=== PATIENT | female | born 1985 | race Caucasian/White ===

== ENCOUNTER 2023-07-12 01:02 | Day surgery (SDC) | payer BC, SELFPAY ==
[2023-07-11 19:43] VITALS: BP 146/95; BMI 40.4
[2023-07-11 19:59] LABS: % Basophils 0.6 % (0-2); % Eosinophils 3.1 % (0-6); % Immature Granulocytes 0.4 % (0-0.5); % Lymphocytes 12.8 % (20.5-51.1); % Monocytes 8.7 % (1.7-9.3); % Neutrophils 74.4 % (42.2-75.2); Absolute Basophils 0.1 10^3/uL (0-0.2); Absolute Eosinophils 0.4 10^3/uL (0-0.7); Absolute Immature Granulocytes 0.1 10^3/uL (0-0.05); Absolute Lymphocytes 1.6 10^3/uL (1.2-3.4); Absolute Monocytes 1.1 10^3/uL (0.1-0.6); Absolute Neutrophils 9.5 10^3/uL (1.4-6.5); Hematocrit 40.7 % (37.0-47.0); Hemoglobin 13.6 g/dL (12.0-16.0); Mean Corp Hgb Conc. 33.4 g/dL (33.0-37.0); Mean Corpuscular Hgb 26.2 pg (27.0-31.0); Mean Corpuscular Volume 78.3 fL (81.0-99.0); Mean Platelet Volume 9.5 fL (7.4-10.4); Nucleated Red Blood Cells % 0 %; Platelet Count 274 10^3/uL (130-400); Red Cell Dist. Width 14.6 % (11.5-14.5); White Blood Cell Count 12.7 10^3/uL (4.8-10.8)
[2023-07-11 20:13] LABS: ALT (SGPT) 43 U/L (0-35); AST (SGOT) 59 U/L (14-36); Albumin 4.4 g/dl (3.5-5.0); Alkaline Phosphatase 125 U/L (38-126); Blood Urea Nitrogen 13 mg/dl (7-17); Calcium 9.8 mg/dl (8.4-10.2); Carbon Dioxide 24 mmol/L (22-30); Chloride 104 mmol/L (98-107); Estimated Creatinine Clearance > 125 ml/min; Glucose 84 mg/dl (70-99); Potassium 4.4 mmol/L (3.5-5.1); Sodium 138 mmol/L (135-145); Total Bilirubin 0.6 mg/dl (0.2-1.3); Total Protein 8.2 g/dl (6.3-8.2); eGFR > 60.00
[2023-07-11 20:15] LABS: HCG, Serum Qualitative Screen Negative
[2023-07-11 20:32] LABS: Lipase 162 U/L (23-300)
[2023-07-11 21:18] VITALS: BP 142/103
[2023-07-11 21:20] VITALS: BP 142/103
[2023-07-11 22:00] VITALS: BP 112/82
[2023-07-11 22:03] VITALS: BP 156/102
--- NOTE | 2023-07-11 22:19 | ED.GENMED ---
History of Present Illness
General
Chief Complaint: Abdominal Pain
Source: patient
Exam Limitations: none
Time Seen by Provider: 07/11/23 21:44
Travel History
Have you had any contact with someone who has COVID-19?: No
Do you have any symptoms of coronavirus? Fever > 100 degrees, chills, cough, shortness of breath, sore throat, loss of taste or smell, muscle aches, or headache?: No
History of Present Illness
History of Present Illness:
This is a 38 year old female that comes in with c/o right lower abd pain. states that the pain started at 2pm and has been constant. States that at first she thought is may be a ovarian cyst but this felt different. States that she feels flushed and
has a headache and just feels like she wants to put her head back. Denies any fever, chills, chest pain, SOB, nausea, vomiting, diarrhea, dizziness, urinary burning.
Past History
Past History
ED Past Medical History: Asthma and Other (PCOS, Hashimotos)
ED Past Surgical History: Cholecystectomy
Social History
Tobacco: Non-smoker
Alcohol: None
Personal:
Living: with family
Review of Systems
Review of Systems
All Other Systems: ROS reviewed and negative except as documented in HPI and ROS
Constitutional: Reports no symptoms; Denies fever or chills
EENT: Reports no symptoms
Respiratory: Denies cough or trouble breathing
Cardiac: Reports no symptoms; Denies chest pain
ABD/GI: Reports abdominal pain; Denies nausea, vomiting or diarrhea
: Reports no symptoms; Denies dysuria, frequency or urgency
Musculoskeletal: Reports no symptoms
Skin: Reports no symptoms
Neurological: Reports headache; Denies dizzy
Psychiatric: Reports no symptoms
Phy Exam
General Physical Exam
General Presentation: well appearing and no apparent distress
General age: appears stated age
General Skin: warm and dry
General Habitus: normal
General Mental: alert
General Hydration: appears well hydrated
ENT Exam
ENT Exam: TM's normal, pharynx normal and neck supple
Eye Exam
Eye Exam: EOMI
Cardiovascular Exam
Cardiovascular Exam: regular rate/rhythm, no edema, no murmur and normal peripheral pulses
Pulmonary Exam
Pulmonary Exam: lungs clear, no respiratory distress, no rales, chest non tender, no crackles, no rhonchi, no wheezing and no cough
Gastrointestinal Exam
Gastrointestinal Exam: normal bowel sounds, soft, no organomegaly, no pulsatile mass, non distended and tender (RLQ tenderness with palpation)
Musculoskeletal Exam
Musculoskeletal Exam: full ROM and no edema
Skin Exam
Skin Exam: normal color, warm/dry, no rash and no petechia
Psychiatric Exam
Psychiatric Exam: normal mood/affect
Course
Orders/Labs/Results
Orders:
Orders
07/11/23 19:47
Test Result ONCE
07/11/23 19:53
Complete Blood Count/With Diff Urgent
Comprehensive Metabolic Panel Urgent
HCG, Serum Qualitative Screen Urgent
Lipase Urgent
07/11/23 22:18
0.9% Sodium Chloride 1000 ml [Nss] 1,000 ml IV BOLUS
07/11/23 22:19
CT Abd/pelvis W Iv Cont Urgent
Comment:
Reason For Exam: right lower abd pain
07/11/23 22:35
Urinalysis Reflex To Culture Urgent
Date Specimen was Collected: 07/11/23
Time Specimen was Collected: 21:36
Urine Microscopic Reflex Cult Urgent
Abnormal Lab Results
07/11/23 07/11/23
19:53 22:35
WBC 12.7 H 10^3/uL
(4.8-10.8)
MCV 78.3 L fL
(81.0-99.0)
MCH 26.2 L pg
(27.0-31.0)
RDW 14.6 H %
(11.5-14.5)
Abs Immat Gran (auto) 0.1 H 10^3/uL
(0-0.05)
Absolute Neuts (auto) 9.5 H 10^3/uL
(1.4-6.5)
Absolute Monos (auto) 1.1 H 10^3/uL
(0.1-0.6)
Lymphocytes % 12.8 L %
(20.5-51.1)
AST 59 H U/L
(14-36)
ALT 43 H U/L
(0-35)
Leukocyte Esterase Rfl Trace A
(Negative)
07/11/23 19:53
07/11/23 19:53
Leukocytosis, AST/ALT elevation. LIpase normal at 162, HCG negative
Vital Signs
Initial and Last Documented VS:
Initial Vital Signs
Temp Pulse Resp BP Pulse Ox
99.6 F 108 20 146/95 98
07/11/23 19:43 07/11/23 19:43 07/11/23 19:43 07/11/23 19:43 07/11/23 19:43
Last Documented Vital Signs
Temp Pulse Resp BP Pulse Ox
99.6 F 92 16 156/102 99
07/11/23 19:43 07/11/23 21:20 07/11/23 21:20 07/11/23 22:03 07/11/23 22:15
MDM/Problems Addressed
Differential Diagnosis Includes:
Ovarian cyst. Appendicitis
MDM/Problems Addressed:
This is a 38 year old female that comes in with c/o right lower abd pain. States that this started at 2pm today and has been constant.
Will get labs and CT scan.
Back into see patient. Explained that she has an appendicitis. Patient will be admitted to Dr. 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 Will give IV antibiotics.
Chronic conditions affecting care:
PCOS
Acute Exacerbation and/or Progression of Chronic Illness:
PSOC
*Radiology
Radiology exam reviewed: radiology read reviewed (CT- The appendix measures up to 7mm with trace surrouding inflammatory changes. Findings are nonspecific, but early acute appendicitis could appear similarly. NO bowel obstruction. Likely status post
cholecystectomy. Incidentals: Mod stool burden. No obstructive uropathy. No hepatic or pancreatic) and other (CT cont- no pancreatic mass. No abd aortic aneurysm. No acute osseous abnormality. No acute abnormality within the visualized lungs. No
acute abnormality within the visualized soft tissues. )
*Pulse Oximetry
Patient hypoxic: no
*EKG
Interpreted by ED Provider?: NA
Rate: EKG- N/A
*Machine Steak Tenderizer Interpretation
Rate: Machine Steak Tenderizer- N/A
*Critical Care Note
Total Time (30-74mins, 75-104mins- exclusive of procedures): Not Applicable
ED Attending Note
-
Portions of this chart may have been created with voice recognition software.� Occasional wrong word or��sound alike� substitutions may have occurred due to the inherent limitations of voice recognition software.
Discharge Plan
Departure
Patient Disposition: Admit
Date of Disposition: 07/12/23
Time of Disposition: 00:17
Admit to: Med/Surg
Presentation/result/management discussed w/ accepting MD/DO: Dr. Alvarado
Patient with high blood pressure during this ER visit?: Yes
Condition: Good
Covid-19: Not Applicable
Discharge Problem:
Acute appendicitis
Referrals:
Preet Casarez DO [Family Provider] -
Interventions
Interventions:
*Risk Screen - Suicide Last Done: 07/11/23 19:43
*General Assessment Last Done: 07/11/23 21:19
*Neglect/Abuse Screening Last Done: 07/11/23 19:43
ED- Fall Risk Assessment Last Done: 07/11/23 21:19
*ED COVID-19 Vaccine History Last Done: 07/11/23 19:43
IM-Szucqh-Bsashoynay Assessment Last Done: 07/11/23 21:15
[2023-07-11] MEDS: NSS 1000 IV (22:33)
[2023-07-11 23:00] LABS: Urine Albumin Negative (Neg - Trace); Urine Bilirubin Negative (Negative); Urine Character Slightly Cloudy (Clear); Urine Color Yellow; Urine Glucose Negative (Negative); Urine Ketone Negative (Negative); Urine Leukocyte Trace (Negative); Urine Nitrite Negative (Negative); Urine Occult Blood Negative (Negative); Urine Specific Gravity 1.015 (<1.030); Urine Urobilinogen Negative (Neg - 1+)
[2023-07-11 23:15] LABS: Urine Squamous Cell >30 /LPF (Few)
[2023-07-12] VITALS (8 sets, daily range): BP systolic 106–150; BP diastolic 62–100; BMI 44.4
--- NOTE | 2023-07-12 00:28 | HPS.HSE ---
Addendum entered and electronically signed by Macho Bruno MD 07/12/23 07:53:
Patient seen and examined independently.
Patient is a 38 yo F with a PMH of morbid obesity, asthma, PCOS, anxiety/depression, Jose's thyroiditis, and s/p laparoscopic cholecystectomy who presents to the hospital with 12 to 24 hours of RIGHT-sided abdominal pain. Ms. Kearney states
that her symptoms began acutely yesterday afternoon. Prior to this she reports feeling well. She describes a sharp RIGHT-sided abdominal pain. No nausea or vomiting. No fevers or chills. No fluctuations in bowel or bladder habits. No chronic
GI issues. No personal or family history of IBD or colon cancers.
Gen NAD
Abd: soft, tender to palpation overlying RIGHT flank, ND, non-peritoneal, examn limited with obesity
Labs and CT scan imaging were reviewed.
Patient is a 38 yo F p/w acute appendicitis
The natural history and pathophysiology of appendicitis was discussed. Anatomy was reviewed. CT scan imaging as a relates to her appendix was reviewed. Options for management including medical management with antibiotics versus surgical
management with appendectomy were considered and discussed. The pros and cons of both approaches was discussed. Specifically, we discussed the risks of antibiotic failure and future episodes of appendicitis versus surgical risks. Recommend and
plan for appendectomy.
Plan for a laparoscopic appendectomy. The procedure itself, as well as the risks, benefits, and alternatives was discussed. Specifically, we discussed the risks of bleeding, infection, injury to surrounding structures (bowel, bladder), staple line
leak, need for open procedure. Typical postprocedural recovery was discussed. All questions answered. Consent signed.
-- Laparoscopic appendectomy
-- Antibiotics: Levaquin and Flagyl
-- NPO, IVF
Original Note:
Family Physician
-
Family Physician: Preet Casarez
Chief Complaint
-
Abdominal Pain
History of Present Illness
Patient is a 38-year-old female with past medical history of asthma, PCOS, anxiety and hasimotos. Patient states that around 2pm in the afternoon she had acute onset of sharp abdominal pain that was rated at a 6/10 and did not alleviate. She stated
she did not attempt any OTC medication for pain. She denies that there is anything that makes the pain worse or better. She denies fever, chills, cough, shortness of breath, chest pain, palpitations, nausea, vomiting, diarrhea or constipation. She
stated that after a few hours she felt she needed to come be evaluated.
Medical History
Past Medical History
Past Medical History: Reports Asthma, Hypothyroidism (Jose's), Psychiatric (Anxiety) and Other (PCOS)
Past Surgical History: Reports Cholecystectomy
Social History
Tobacco: Non-smoker
Alcohol: None
Drug: Marijuana (last used 07/09/2021)
Personal:
Living: With Family
Employment: Employed
Family History
Family History: CAD (mother and father), Cancer (sister had lymphoma) and Other (CVA - mother and father)
Allergies / Home Medications
Allergies reflects when Allergies were last updated in [employer].
Home Medications with original date entered in [employer]
Allergy/Medication List:
Allergies
Allergy/AdvReac Type Severity Reaction Status Date / Time
Penicillins Allergy Itching Verified 07/11/23 19:42
Home Medications Table - record
Medication Instructions Recorded Confirmed
budesonide-formoterol HFA 80 1 inh inhalation ONCE 07/12/23 07/12/23
mcg-4.5 mcg/actuation aerosol
inhaler (Symbicort)
levothyroxine 100 mcg tablet 100 mcg PO DAILY 07/12/23 07/12/23
sertraline 50 mg tablet 75 mg PO QPM 07/12/23 07/12/23
Review of Systems
-
History Source: Patient
Constitutional: Reports No Symptoms and See HPI
EENT: Reports No Symptoms and See HPI
Respiratory: Reports No Symptoms and See HPI
Cardiac: Reports No Symptoms and See HPI
Abdomen/GI: Reports Abdominal Pain
: Reports No Symptoms and See HPI
Musculoskeletal: Reports No Symptoms and See HPI
Skin: Reports No Symptoms and See HPI
Neurological: Reports No Symptoms and See HPI
Endocrine: Reports No Symptoms and See HPI
Hematologic/Lymphatic: Reports No Symptoms and See HPI
Psych: Reports No Symptoms, See HPI and Calm
Physical Exam
Vital Signs
Vital Signs
Temp Pulse Resp BP Pulse Ox
99.6 F 92 16 150/100 100
07/11/23 19:43 07/11/23 21:20 07/11/23 21:20 07/12/23 00:05 07/12/23 00:05
Physical Exam
General: Well Developed, Well Nourished, No Apparent Distress, Comfortable and Conversant
HEENT: NormoCephalic, Moist mucous membranes, PERRLA, Nina Conjunctivae, Nose Appears Normal and Ears Appear Normal
Respiratory: Clear and Non Labored Respirations
Cardiac: S1/S2 and Regular Rhythm
Breast: Deferred by me
GI: Soft, Normal Bowel Sounds and Tender
Rectal: Deferred by Provider
Genito-urinary: Deferred by me
Musculoskeletal: No Clubbing, No Cyanosis and No Edema
Skin: Warm, Dry and IV/Catheter Site
Neuro: Awake, AO x 3 and Cranial Nerves Intact
Hematologic/Lymphatic: No Lymphadenopathy
Psych: Calm and Intact Judgment/Insight
Laboratory Results
-
07/11/23 19:53
07/11/23 19:53
Laboratory Results
Total Bilirubin 0.6 mg/dl (0.2-1.3) 07/11/23 19:53
AST 59 U/L (14-36) H 07/11/23 19:53
ALT 43 U/L (0-35) H 07/11/23 19:53
Alkaline Phosphatase 125 U/L (38-126) 07/11/23 19:53
Lipase 162 U/L (23-300) 07/11/23 19:53
Data Reviewed
-
CT Scan: Report Reviewed by me and Discussed with Physician
Lab Data: Labs Reviewed by me, Discussed with Physician and Discussed with Patient
Impression/Plan
-
IMPRESSION:
Patient is a 38-year-old female with past medical history of asthma, PCOS, anxiety and hasimotos. Patient states that around 2pm in the afternoon she had acute onset of sharp abdominal pain that was rated at a 6/10 and did not alleviate. She stated
she did not attempt any OTC medication for pain. She denies that there is anything that makes the pain worse or better. She denies fever, chills, cough, shortness of breath, chest pain, palpitations, nausea, vomiting, diarrhea or constipation. She
stated that after a few hours she felt she needed to come be evaluated.
PLAN:
#Acute Appendicitis
- Admit to observation under Dr. Alvarado
- IV antibiotics
- NPO after midnight
- Pain medications
- Antiemetics
#Asthma
- Continue Symbicort
#Jose's/hypothyroid
- Continue levothyroxine
#Anxiety
- continue Sertraline
NPO
Full Code
DVT Prophylaxis: SCDs
[2023-07-12] MEDS: FLAGYL 500 MG 100 IV ×2 (00:46→11:21)
[2023-07-12] MEDS: LEVAQUIN 100 IV (00:47)
[2023-07-12] MEDS: ATIVAN 0.5 MG PO (02:13)
[2023-07-12] MEDS: NSS 1000 IV (02:40)
[2023-07-12] MEDS: MORPHINE SULFATE 2 MG IV (04:29)
--- NOTE | 2023-07-12 07:53 | W.SUR.PREOP ---
Pre-Operative Surgical Note
-
I have examined this patient prior to the performance of the scheduled procedure.
The patient's condition is unchanged from the time of the current History and
Physical and the patient is able to undergo the scheduled procedure.
--- NOTE | 2023-07-12 09:11 | W.IMMPOSTOP ---
Addendum entered and electronically signed by Macho Bruno MD 07/12/23 09:42:
[facility]# [id number]
Original Note:
Surgical Immed Post Op Note
-
Primary Surgeon: Kiana
Assisting Surgeon: AARTI Aranda
Pre-op Diagnosis: Acute appendicitis
Post-op Diagnosis: Acute appendictis
Procedure Performed: Laparoscopic appendectomy
Anesthesia Type: General
Specimen / Cultures:
1. Appendectomy
Estimated Blood Loss: 3 cc
Complications: None
Operative Findings:
1. Acute appendicitis, no evidence of perforation
2. Base taken with montelongo load stapler, mesentery with Ligasure
[2023-07-12] MEDS: DILAUDID 0.25 MG IV ×2 (09:49→09:59)
--- NOTE | 2023-07-12 10:43 | PTCARENOTE ---
Patient returned to her room post laparoscopic appendectomy.Patient reports her pain at a 6 out of 10.All 4 lap sites are clean and dry with no drainage.Vital signs are stable.The patient is in her bed with the call rincon in reach.Her family is at
the bedside.The patient is for
discharge later today if she remains stable.
[2023-07-12] MEDS: ROXICODONE 5 MG PO (12:52)
--- NOTE | 2023-07-12 17:09 | CM ---
met with patient and at bedside.she lives with her spouse in house with 2 steps to enter,her bed and bath is on the second level,she amb i,and is i with her adl's.her pcp is dr chavez and she gets her meds from [facility] in [place].patient is sp appendectomy and is stable to dc home with no needs. to transport home.
== END 2023-07-12 13:51 | disposition home or self-care (01) ==
LOC: SDS 01:02
PROVIDERS: Emergency Medicine; ATTENDING PHYSICIAN Surgery; EMERGENCY PHYSICIAN Emergency Medicine; FAMILY PHYSICIAN Family Medicine
DX: K35.80 Unspecified acute appendicitis (principal); E66.01 Morbid (severe) obesity due to excess calories; Z68.41 Body mass index [BMI] 40.0-44.9, adult
CPT/HCPCS: 44970; 88304; 74177; 80053; 81003; 81015; 83690; 84703; 85025; 96360; 99285; G0378; Q9967